=== PATIENT | male | born 1990 | race African-American/Black ===

== ENCOUNTER 2023-10-21 23:07 | Inpatient (IN) | payer MEDICARE, MEDICAID ==
[2023-10-21] MEDS ORDERED: MAG HYDROX/AL HYDROX/SIMETH 355 ML BOTTLE PO PRN (23:09)
[2023-10-21] MEDS ORDERED: LORazepam 2 MG/ML INJ IM PRN (23:12)
[2023-10-21] MEDS ORDERED: traZODone HCL 50 MG TAB PO PRN (23:12)
[2023-10-22] MEDS: HALOPERIDOL LACTATE 5 MG/ML 1 ML VIAL IM PRN (01:10)
[2023-10-22] MEDS: IBUPROFEN 600 MG TAB PO PRN (08:37)
[2023-10-22] MEDS: METOPROLOL TARTRATE 25 MG TAB PO SCH (08:37)
[2023-10-22] MEDS: amLODIPine 10 MG TAB PO SCH (08:38)
[2023-10-22] MEDS: haloperidoL 5 MG TAB PO PRN (08:39)
[2023-10-22] MEDS: NICOTINE 14MG/24HR PATCH TRANSDERM SCH (08:48)
[2023-10-22 09:26] LABS: Basophils % (A) 1 %; Eosinophils # (A) 0.2 k/uL (0-0.7); Eosinophils % (A) 4 %; HCT 39.2 % (39.0-53.0); HGB 13.2 gm/dL (13.0-17.5); Lymphocytes # (A) 1.5 k/uL (1.0-4.8); Lymphocytes % (A) 27 %; MCH 33.8 pg (25.0-35.0); MCHC 33.7 g/dL (31.0-37.0); MCV 100.2 fL (80.0-100.0); Macrocytosis Slight; Mean Platelet Volume 8.7; Monocytes # (A) 0.5 k/uL (0-1.0); Monocytes % (A) 9 %; Neutrophils # (A) 3.2 k/uL (1.3-7.7); Neutrophils % (A) 58 %; RBC 3.91 m/uL (4.30-5.90); RDW 14.7 % (11.5-15.5); WBC 5.5 k/uL (3.8-10.6)
[2023-10-22 09:48] LABS: ALT 18 U/L (4-49); AST 30 U/L (17-59); African American GFR (CKD) 49 (>60 ml/min/1.73 sqM); Albumin 3.5 g/dL (3.5-5.0); Alkaline Phosphatase 70 U/L (38-126); Anion Gap 6 mmol/L; Blood Urea Nitrogen 20 mg/dL (9-20); Calcium 8.9 mg/dL (8.4-10.2); Carbon Dioxide 29 mmol/L (22-30); Chloride 105 mmol/L (98-107); Glucose 156 mg/dL (74-99); Non-African American GFR(CKD) 43 (>60 ml/min/1.73 sqM); Potassium 3.5 mmol/L (3.5-5.1); Sodium 140 mmol/L (137-145); Total Bilirubin 1.1 mg/dL (0.2-1.3)
[2023-10-22 11:11] LABS: Platelet Count 40 k/uL (150-450)
[2023-10-22 11:12] LABS: Poikilocytosis (M) Present; RBC Fragments Present; Spherocytes Present
[2023-10-22] MEDS ORDERED: hydrOXYzine HCL 50 MG/ML 1 ML VIAL IM PRN (11:26)
[2023-10-22] MEDS ORDERED: LORazepam 2 MG/ML INJ IM PRN (11:26)
[2023-10-22] MEDS ORDERED: flUPHENAZine 2.5 MG/ML (MDV) 10 ML VIAL IM PRN (11:37)
--- NOTE | 2023-10-22 11:52 | P.HP ---
Psychiatric H&P - . H&P Date: 10/22/23 History & Physical: Allergies Allergy/AdvReac Type Severity Reaction Status Date / Time No Known Allergies Allergy Verified 10/21/23 23:09 Vital Signs Temp Pulse Resp BP 150/104 10/22/23 10:19 Pulse Ox FiO2 Intake & Output 10/21/23 10/22/23 10/22/23 18:59 06:59 18:59 Weight 84.822 kg Laboratory Last Values WBC 5.5 k/uL (3.8-10.6) 10/22/23 09:10 RBC 3.91 m/uL (4.30-5.90) L 10/22/23 09:10 Hgb 13.2 gm/dL (13.0-17.5) 10/22/23 09:10 Hct 39.2 % (39.0-53.0) 10/22/23 09:10 MCV 100.2 fL (80.0-100.0) H 10/22/23 09:10 MCH 33.8 pg (25.0-35.0) 10/22/23 09:10 MCHC 33.7 g/dL (31.0-37.0) 10/22/23 09:10 RDW 14.7 % (11.5-15.5) 10/22/23 09:10 Plt Count 40 k/uL (150-450) L 10/22/23 09:10 MPV 8.7 10/22/23 09:10 Neutrophils % 58 % 10/22/23 09:10 Lymphocytes % 27 % 10/22/23 09:10 Monocytes % 9 % 10/22/23 09:10 Eosinophils % 4 % 10/22/23 09:10 Basophils % 1 % 10/22/23 09:10 Neutrophils # 3.2 k/uL (1.3-7.7) 10/22/23 09:10 Lymphocytes # 1.5 k/uL (1.0-4.8) 10/22/23 09:10 Monocytes # 0.5 k/uL (0-1.0) 10/22/23 09:10 Eosinophils # 0.2 k/uL (0-0.7) 10/22/23 09:10 Basophils # 0.0 k/uL (0-0.2) 10/22/23 09:10 Manual Slide Review Performed 10/22/23 09:10 Poikilocytosis (manual Present 10/22/23 09:10 Macrocytosis Slight 10/22/23 09:10 Spherocytes Present 10/22/23 09:10 Fragmented RBCs Present 10/22/23 09:10 Sodium 140 mmol/L (137-145) 10/22/23 09:10 Potassium 3.5 mmol/L (3.5-5.1) 10/22/23 09:10 Chloride 105 mmol/L (98-107) 10/22/23 09:10 Carbon Dioxide 29 mmol/L (22-30) 10/22/23 09:10 Anion Gap 6 mmol/L 10/22/23 09:10 BUN 20 mg/dL (9-20) 10/22/23 09:10 Creatinine 1.99 mg/dL (0.66-1.25) H 10/22/23 09:10 Est GFR (CKD-EPI)AfAm 49 (>60 ml/min/1.73 sqM) 10/22/23 09:10 Est GFR (CKD-EPI)NonAf 43 (>60 ml/min/1.73 sqM) 10/22/23 09:10 Glucose 156 mg/dL (74-99) H 10/22/23 09:10 Calcium 8.9 mg/dL (8.4-10.2) 10/22/23 09:10 Total Bilirubin 1.1 mg/dL (0.2-1.3) 10/22/23 09:10 AST 30 U/L (17-59) 10/22/23 09:10 ALT 18 U/L (4-49) 10/22/23 09:10 Alkaline Phosphatase 70 U/L (38-126) 10/22/23 09:10 Total Protein 6.0 g/dL (6.3-8.2) L 10/22/23 09:10 Albumin 3.5 g/dL (3.5-5.0) 10/22/23 09:10 TSH 1.500 mIU/L (0.465-4.680) 10/22/23 09:10 10/22/23 11:28 IDENTIFYING DATA: Patient is a 33-year-old male, -[place], is homeless, single has 1 kid, collect Social Security disability HPI: Patient presented to the hospital as a transfer from [place] outside hospital. Patient apparently has a history of schizophrenia, he is also apparently on a court order for mental health treatment which expires in December 09. According to the petition which was filled out by a mental health therapist it claimed that he has been "noncompliant with court order. Has not taken medication in 3 months. Has not followed up with treatment team. Responding to internal stimuli". Patient needed 2 doses of Haldol earlier this morning as a as needed for agitation, he was uncooperative with the admission process. Patient had very poor insight and judgment when sports writer attempted to speak with him, he got upset when sports writer asked him about the circumstances of him being transferred to the mental health unit and what brought him into the hospital. He believes that the police are just trying to put him in longterm. He claims that he has an apartment in a house. He minimizes his need for medications and to be in the hospital, he was fairly irritable with sports writer, uncooperative during most of the evaluation. Very poor impulse control and poor judgment. Claims his sleep has been on and off appetite has been fair. Patient denies any suicidal or homicidal ideations intent or plan. At this time patient denies any auditory or visual hallucinations. Patient denies any flight of ideas racing thoughts and increased in goal directed behavior. Patient admits to using no recreational drugs however has not provided a urine drug screen PAST PSYCHIATRIC HISTORY: Patient has a history of schizophrenia and noncompliance. He claims that he has been on several and he psychotics in the past and other medications which she cannot list. He states that he has been hospitalized in [place] several times and also [place] recently. Patient denies any psychiatric outpatient follow-up. Patient denies any history of suicide attempts in the past. PMH: as per ER note ALLERGIES: as per EMR CHEMICAL DEPENDENCY HISTORY: as per HPI FAMILY PSYCHIATRIC/SUBSTANCE USE HISTORY: He claims that there is significant mental illness in his family however cannot specify what it is SOCIAL HISTORY: Patient was born and raised in [facility], claims that he completed high school, he is single, he is homeless, has 1 kid, he collect Social Security disability. Claims that he has been arrested several times in the past MENTAL STATUS EXAM: General Appearance: Patient appears to be tall, disheveled appearance, stated age is alert, uncooperative mildly irritable. Patient appears to have poor hygiene and grooming. Behavior: Patient is laying in his bed, sheets covering his face, somewhat agitated and irritable. Uncooperative Speech: Patient's speech is fluent and nonpressured. [place], evasive Mood/Affect: Patient reports their mood is fine", affect is incongruent and constricted. Suicidality/Homicidality: Patient denies having any homicidal ideation intent or plan. Denies any suicidal ideations intent or plan Perceptions: Patient denies any visual hallucinations and denies any auditory hallucinations Though content/process: Poor insight into his condition and need for treatment, denies any delusions. [place] Memory and concentration: AOX3, grossly intact for the purposes of this session. Judgment and insight: Chronically poor STRENGTHS/WEAKNESSES: strength is that patient is resilient. Weakness is that patient has poor judgment and is impulsive and chronic mental illness INTELLECT: Average IMPRESSIONS: Schizophrenia Noncompliance with medication treatment regimen Nicotine dependence PLAN: -Patient is admitted under involuntary status to MHU for stabilization of psychiatric symptoms and safety. Patient has not signed adult voluntary form and medication consent and is placed in patient's chart. Patient is currently on a active court order for mental health treatment which expires on 12/09. -Medications : Start Prolixin p.o. 4 mg twice daily for psychosis/mood stabilization. If patient refuses p.o. Prolixin then please give IM Prolixin as per court order. Trazodone 100 mg nightly as needed for insomnia/mood. -Ativan and Haldol PRN for agitation/aggression -Patient was informed of the risks, benefits and side effects of the medication and patient verbally consented to taking the medications. -Internal Medicine consult to perform medical evaluation and physical. -NRT -nicotine patch -SW on board for discharge planning. Encourage patient to participate in groups to work on coping skills.
[2023-10-22 15:39] LABS: Chol/HDL Ratio 3.16 Ratio; LDL Cholesterol,Calculated 68.5 mg/dL (0.0-131.0)
[2023-10-22] MEDS: ACETAMINOPHEN TAB 325 MG TAB PO PRN (18:04)
[2023-10-22] MEDS: traZODone HCL 100 MG TAB PO PRN (20:58)
[2023-10-22] MEDS: hydroCHLOROthiazide 25 MG TAB PO SCH (21:39)
[2023-10-22] MEDS: hydrALAZINE HCL 25 MG TAB PO STA (21:40)
--- NOTE | 2023-10-23 05:02 | P.PN ---
Progress Note - Text Progress Note Date: 10/23/23 Attempted to see this patient in the MHU on 10/21 at 2200. Informed by the MHU RN that the patient was actively psychotic and aggressive and inappropriate for evaluation at that time. Will attempt to see the patient again today.
--- NOTE | 2023-10-23 12:07 | P.PN ---
Progress Note - Text Progress Note Date: 10/23/23 Interval History: Patient was seen in his room and was directable and agreeable to speak with wr iter at the bedside. He states that he is "all right" today. He states he does not know why he is here, he states he just needs his bones checked out. He claims to have a crushed hip and tailbone for 2 years, from falling off the roof. He states he needs toradol, morphine, dilaudid, or fentanyl for sleep. [employer] explained that those medications are not indicated for sleep. He states that he does not need "mental pills". Patient lacks insight for his need for treatment. Patient states that he only slept 1.5 hours last night, and states his appetite is good. At this time patient denies any suicidal or homicidal ideations, intent or plan. Patient denies any auditory, visual hallucinations and denies any paranoia or delusions. Patient denies any side effects from the medications and has been compliant with meds. MENTAL STATUS EXAM: General Appearance: Patient appears to be tall, disheveled appearance, stated age is alert. Patient appears to have poor hygiene and grooming. Behavior: Patient is laying in his bed, covered up, more cooperative today, drug seeking Speech: Patient's speech is fluent and nonpressured. [place], evasive Mood/Affect: Patient reports their mood is "all right", affect is incongruent and constricted. Suicidality/Homicidality: Patient denies having any homicidal ideation intent or plan. Denies any suicidal ideations intent or plan Perceptions: Patient denies any visual hallucinations and denies any auditory hallucinations Though content/process: Poor insight into his condition and need for treatment, denies any delusions. [place] Memory and concentration: AOX3, grossly intact for the purposes of this session. Judgment and insight: Chronically poor IMPRESSIONS: Schizophrenia Noncompliance with medication treatment regimen Nicotine dependence PLAN: -Patient is admitted under involuntary status to MHU for stabilization of psychiatric symptoms and safety. Patient has not signed adult voluntary form and medication consent and is placed in patient's chart. Patient is currently on a active court order for mental health treatment which expires on 12/09. -Medications : increase Prolixin p.o. 6 mg twice daily for psychosis/mood stabilization. If patient refuses p.o. Prolixin then please give IM Prolixin as per court order. Add Zoloft 50mg qhs for mood/anxiety. change Trazodone 100 mg nightly scheduled for insomnia/mood. -Ativan and Haldol PRN for agitation/aggression -NRT -nicotine patch -SW on board for discharge planning. Encourage patient to participate in groups to work on coping skills. pt is homeless.
[2023-10-23] MEDS: SERTRALINE 50 MG TAB PO SCH (19:57)
[2023-10-23] MEDS: traZODone HCL 100 MG TAB PO SCH (19:58)
[2023-10-23] MEDS: hydrOXYzine pamoate 25 MG CAP PO PRN (19:59)
--- NOTE | 2023-10-24 04:40 | P.CONS ---
History of Present Illness - Reason for Consult Consult date: 10/24/23 - History of Present Illness The patient is a 33-year-old male with a PMH of hypertension, CKD, marijuana abuse who had presented to the emergency room transferred from [facility] for schizophrenia. Patient was seen at the mental health unit. Patient reports that he experienced a right ankle injury 2 years ago and feels that it has not healed appropriately and continues to have chronic right ankle edema. He also reported a tailbone injury several months ago which also is causing chronic pain. He reports recreational marijuana use along with smoking 5 cigarettes/day. He denies alcohol or additional illicit substance use. Denies experiencing chest discomfort, shortness breath or fever, chills, cough, nausea, vomiting, abdominal pain, diarrhea. Review of systems: Pertinent positives and negatives as discussed in HPI, a complete review of systems was performed and all other systems are negative. Physical examination: General: non toxic, no distress, appears at stated age, normal weight Derm: no unusual rashes/lesions, no unusual ecchymoses, warm, dry Head: atraumatic, normocephalic, symmetric Eyes: EOMI, no lid lag, anicteric sclera ENT: Nose and ears atraumatic, no thrush, no pharyngeal erythema Neck: trachea midline, supple Mouth: no lip lesion, mucus membranes moist Cardiovascular: S1S2 reg, no murmur, no edema Lungs: CTA bilateral, no rhonchi, no rales , no accessory muscle use Abdominal: soft, nontender to palpation, no guarding Ext: no gross muscle atrophy, no contractures, mild right lateral ankle edema with minimal tenderness Neuro: No gross focal neuro deficits noted Psych: Alert, oriented, appropriate affect Assessment: Thrombocytopenia, unclear CKD stage IIIa Hypertension R ankle edema with tenderness Plan: Continue with antihypertensive Norvasc 10, hydrochlorothiazide 25, and metoprolol 25 mg Obtain right ankle and coccyx x-rays Monitor CBC BMP Thank you for allowing us to participate in the care of this patient. We will follow peripherally. Do not hesitate to contact us with questions. Someone can be reached from the [facility] hospitalist group at all hours of the day at [phone]. Past Medical History Past Medical History: Hypertension Additional Past Medical History / Comment(s): hx of crushed right ankle and unknown injury to right lower leg. Has mutliple surgical scars lower abdomen, "I have had alot of surgeries". Vague about why History of Any Multi-Drug Resistant Organisms: Unobtainable Additional Past Surgical History / Comment(s): multiple unkown surgeries per patient. Past Anesthesia/Blood Transfusion Reactions: Unable to Obtain Past Psychological History: Bipolar Smoking Status: Current some day smoker Past Alcohol Use History: Heavy Additional Past Alcohol Use History / Comment(s): Occassional to patient is is a 1/2 pint to 1 pint per week. Past Drug Use History: Cocaine, Marijuana - Past Family History Mother Family Medical History: Congestive Heart Failure (CHF) Medications and Allergies Allergies Allergy/AdvReac Type Severity Reaction Status Date / Time No Known Allergies Allergy Verified 10/21/23 23:09 Physical Exam Vitals: Vital Signs Temp Pulse Resp BP 10/23/23 08:27 97.9 F 93 16 145/98 Results CBC & Chem 7: 10/22/23 09:10 10/22/23 09:10
--- NOTE | 2023-10-24 10:05 | P.PN ---
Progress Note - Text Progress Note Date: 10/24/23 Interval History: Patient was seen in his room and was directable and agreeable to speak with wr iter at the bedside. He states that he is "all right" today. He states he slept better last night. He states his mood is improving, and his insight for treatment is improving. and states his appetite is good. At this time patient denies any suicidal or homicidal ideations, intent or plan. Patient denies any auditory, visual hallucinations and denies any paranoia or delusions. Patient denies any side effects from the medications and has been compliant with meds. MENTAL STATUS EXAM: General Appearance: Patient appears to be tall, disheveled appearance, stated age is alert. Patient appears to have poor hygiene and grooming. Behavior: Patient is laying in his bed, covered up, more cooperative today, Speech: Patient's speech is fluent and nonpressured. [place], mildly improving Mood/Affect: Patient reports their mood is "all right", affect is incongruent and constricted. Suicidality/Homicidality: Patient denies having any homicidal ideation intent or plan. Denies any suicidal ideations intent or plan Perceptions: Patient denies any visual hallucinations and denies any auditory hallucinations Though content/process: Poor insight into his condition and need for treatment, denies any delusions. [place], mildly improving Memory and concentration: AOX3, grossly intact for the purposes of this session. Judgment and insight: Chronically poor IMPRESSIONS: Schizophrenia Noncompliance with medication treatment regimen Nicotine dependence PLAN: -Patient is admitted under involuntary status to MHU for stabilization of psychiatric symptoms and safety. Patient has not signed adult voluntary form and medication consent and is placed in patient's chart. Patient is currently on a active court order for mental health treatment which expires on 12/09. -Medications : Prolixin p.o. 6 mg twice daily for psychosis/mood stabilization, taper off PO prolixin once receives JARRETT. If patient refuses p.o. Prolixin then please give IM Prolixin as per court order. Zoloft 50mg qhs for mood/ anxiety.Trazodone 100 mg nightly scheduled for insomnia/mood. on 10/24, patient will receive JARRETT Prolixin D 37.5mg IM q 21 days on 10/24, next dose due 11/14 -Ativan and Haldol PRN for agitation/aggression -NRT - nicotine patch -SW on board for discharge planning. Encourage patient to participate in groups to work on coping skills. pt is homeless. discharge Sunday, after patient is transitioned onto JARRETT, will be going back to [place], refer to halfway.
[2023-10-24] MEDS: MAGNESIUM HYDROXIDE 2,400 MG/30 ML CUP PO PRN (11:43)
[2023-10-24] MEDS: LORazepam 1 MG TAB PO PRN (11:43)
--- NOTE | 2023-10-24 13:41 | XR ---
EXAMINATION TYPE: XR sacrum coccyx 3 views, XR ankle complete 3 views RT DATE OF EXAM: 10/24/2023 COMPARISON: NONE HISTORY: 33-year-old male right ankle pain and swelling FINDINGS: Sacrum and coccyx: SI joints appear symmetric and intact. Fluid delineation to the arcuate lines of the sacrum. No subar ticular erosions are seen. Some scattered vascular calcifications noted. There is trace 3 mm of poste rior step off at the coccyx. No angulation deformity. Ankle: Ankle mortise is congruent with preservation of the distal tibiofibular overlap. Talar dome is intact . Possible underlying pes planus. Smooth delineation to the Achilles tendon. No acute fracture, sublu xation, dislocation. IMPRESSION: 1. Sacrum and coccyx: Trace 3 mm posterior step-off at the coccyx on the lateral view. Findings sugge st an age indeterminate minimally offset tailbone fracture. Clinically correlate. 2. Right ankle: No acute osseous abnormality seen. There may be underlying pes planus.
[2023-10-25] MEDS: fluPHENAZine DECANOATE 25 MG/ML 5ML MDV IM SCH (09:22)
--- NOTE | 2023-10-25 13:21 | P.PN ---
Progress Note - Text Progress Note Date: 10/25/23 Interval History: Patient was seen via HIPAA-compliant Zoom (pt consented). He states that he is "all right" today. He states he slept well last night. He states his mood is improving, and his insight for treatment is improving. He states his appetite is good. At this time patient denies any suicidal or homicidal ideations, intent or plan. Patient denies any auditory, visual hallucinations and denies any paranoia or delusions. Patient denies any side effects from the medications and has been compliant with meds. He received JARRETT today and denies concerns with it. Discussed patient's thrombocytopenia. He was encouraged to f/u with PCP outpatient and that medical team is ordering further labs at this time. Patient expressed understanding and agreed to do so. MENTAL STATUS EXAM: General Appearance: Patient appears to be tall, disheveled appearance, stated age is alert. Patient appears to have poor hygiene and grooming. Behavior: Patient is laying in his bed, covered up, more cooperative today, Speech: Patient's speech is fluent and nonpressured. [place], mildly improving Mood/Affect: Patient reports their mood is "all right", affect is incongruent and constricted. Suicidality/Homicidality: Patient denies having any homicidal ideation intent or plan. Denies any suicidal ideations intent or plan Perceptions: Patient denies any visual hallucinations and denies any auditory hallucinations Though content/process: Poor insight into his condition and need for treatment, denies any delusions. [place], mildly improving Memory and concentration: AOX3, grossly intact for the purposes of this session. Judgment and insight: Chronically poor IMPRESSIONS: Schizophrenia Noncompliance with medication treatment regimen Nicotine dependence PLAN: -Patient is admitted under involuntary status to MHU for stabilization of psychiatric symptoms and safety. Patient has not signed adult voluntary form and medication consent and is placed in patient's chart. Patient is currently on a active court order for mental health treatment which expires on 12/09. -Medications : Reduce Prolixin p.o. to 6 mg daily for psychosis/mood stabilization with plan to dc tomorrow. If patient refuses p.o. Prolixin then please give IM Prolixin as per court order. Zoloft 50mg qhs for mood/anxiety. Trazodone 100 mg nightly scheduled for insomnia/mood. on 10/24, received JARRETT Prolixin D 37.5mg IM q 21 days on 10/24, next dose due 11/14 -Ativan and Haldol PRN for agitation/aggression -NRT - nicotine patch -SW on board for discharge planning. Encourage patient to participate in groups to work on coping skills. pt is homeless. discharge Sunday, after patient is transitioned onto JARRETT, will be going back to [place], refer to fpc. -Pt being given resources for PCP for f/u thrombocytopenia (contributing factors of CKD and alcohol use; IM on board and monitoring). SW asked to help with appt scheduling.
[2023-10-25 15:57] LABS: HCT 43.1 % (39.0-53.0); MCH 33.5 pg (25.0-35.0); MCHC 32.6 g/dL (31.0-37.0); MCV 102.7 fL (80.0-100.0); Macrocytosis Slight; Mean Platelet Volume 9.4; RDW 14.2 % (11.5-15.5)
[2023-10-25 16:15] LABS: Platelet Count 158 k/uL (150-450)
[2023-10-26 05:43] VITALS: BP 127/90; PULSE 77; RESP 18; TEMP 97.7
--- NOTE | 2023-10-26 17:17 | P.DS ---
Providers Date of admission: 10/22/23 01:42 Expected date of discharge: 10/26/23 Attending physician: Clint Minor MD Consults: 10/21/23 23:09 Consult Physician Routine Consulting Provider: Sunil Michaels Consult Reason/Comments: History and Physical, Hx of hypertension. Do you want consulting provider notified?: Yes Primary care physician: Physician Nonstaff Hospital Course: Admission HPI: Admission note was completed by Dr. Minor, "IDENTIFYING DATA: Patient is a 33-year-old male, -Mac[place], is homeless, single has 1 kid, collect Social Security disability HPI: Patient presented to the hospital as a transfer from [place] outside hospital. Patient apparently has a history of schizophrenia, he is also apparently on a court order for mental health treatment which expires in December 09. According to the petition which was filled out by a mental health therapist it claimed that he has been "noncompliant with court order. Has not taken medication in 3 months. Has not followed up with treatment team. Responding to internal stimuli". Patient needed 2 doses of Haldol earlier this morning as a as needed for agitation, he was uncooperative with the admission process. Patient had very poor insight and judgment when chart writer attempted to speak with him, he got upset when chart writer asked him about the circumstances of him being tr ansferred to the mental health unit and what brought him into the hospital. He believes that the police are just trying to put him in fpc. He claims that he has an apartment in a house. He minimizes his need for medications and to be in the hospital, he was fairly irritable with chart writer, uncooperative during most of the evaluation. Very poor impulse control and poor judgment. Claims his sleep has been on and off appetite has been fair. Patient denies any suicidal or homicidal ideations intent or plan. At this time patient denies any auditory or visual hallucinations. Patient denies any flight of ideas racing thoughts and increased in goal directed behavior. Patient admits to using no recreational drugs however has not provided a urine drug screen PAST PSYCHIATRIC HISTORY: Patient has a history of schizophrenia and noncompliance. He claims that he has been on several and he psychotics in the past and other medications which she cannot list. He states that he has been hospitalized in [place] several times and also [place] recently. Patient denies any psychiatric outpatient follow-up. Patient denies any history of suicide attempts in the past. PMH: as per ER note ALLERGIES: as per EMR CHEMICAL DEPENDENCY HISTORY: as per HPI FAMILY PSYCHIATRIC/SUBSTANCE USE HISTORY: He claims that there is significant mental illness in his family however cannot specify what it is SOCIAL HISTORY: Patient was born and raised in [facility] [place], claims that he completed high school, he is single, he is homeless, has 1 kid, he collect Social Security disability. Claims that he has been arrested several times in the past MENTAL STATUS EXAM: General Appearance: Patient appears to be tall, disheveled appearance, stated age is alert, uncooperative mildly irritable. Patient appears to have poor hygiene and grooming. Behavior: Patient is laying in his bed, sheets covering his face, somewhat agitated and irritable. Uncooperative Speech: Patient's speech is fluent and nonpressured. [place], evasive Mood/Affect: Patient reports their mood is fine", affect is incongruent and constricted. Suicidality/Homicidality: Patient denies having any homicidal ideation intent or plan. Denies any suicidal ideations intent or plan Perceptions: Patient denies any visual hallucinations and denies any auditory hallucinations Though content/process: Poor insight into his condition and need for treatment, denies any delusions. [place] Memory and concentration: AOX3, grossly intact for the purposes of this session. Judgment and insight: Chronically poor STRENGTHS/WEAKNESSES: strength is that patient is resilient. Weakness is that patient has poor judgment and is impulsive and chronic mental illness INTELLECT: Average IMPRESSIONS: Schizophrenia Noncompliance with medication treatment regimen Nicotine dependence PLAN: -Patient is admitted under involuntary status to MHU for stabilization of psychiatric symptoms and safety. Patient has not signed adult voluntary form and medication consent and is placed in patient's chart. Patient is currently on a active court order for mental health treatment which expires on 12/09. -Medications : Start Prolixin p.o. 4 mg twice daily for psychosis/mood stabilization. If patient refuses p.o. Prolixin then please give IM Prolixin as per court order. Trazodone 100 mg nightly as needed for insomnia/mood. -Ativan and Haldol PRN for agitation/aggression -Patient was informed of the risks, benefits and side effects of the medication and patient verbally consented to taking the medications. -Internal Medicine consult to perform medical evaluation and physical. -NRT -nicotine patch -SW on board for discharge planning. Encourage patient to participate in groups to work on coping skills." Hospital course: Upon admission to the unit patient was on a court order which expires 12/10/23. Patient was noncompliant with medications and required PRN Haldol for severe agitation. He was started on oral Prolixin with IM Prolixin as needed for refusal of oral Prolixin. Patient mostly kept to himself in his room except for meals. Patient was also seen by medical team for history and physical exam. Th roughout the course of the hospitalization patient gradually improved with regards to psychosis and agitation, and returned back to their baseline level of functioning. He was transitioned to Prolixin decanoate 37.5 mg Q21 days on 10/25/23 with next dose due on 11/15/23 as an outpatient. On the day of discharge patient denied any suicidal or homicidal ideation, intent or plan, and denied any auditory or visual hallucinations. Patient endorsed wanting to live for his health and family. The patient denied any access to guns or weapons. Patient denied any paranoia and did not endorse any delusions. Patient was also counseled on the medications and need for regular compliance and was encouraged to follow-up with their outpatient appointment for mental health and also for primary care. Prior to discharge a family meeting will be arranged by social contact worker to answer any questions and ensure safety upon discharge. Patient will be provided with a taxi ride to his mother's house on discharge. Mental status exam: General Appearance: Patient appears to be stated age, long hair in dreads, improved hygiene and grooming Behavior: Patient is calmly laying in bed, sits up in bed for assessment. Tends to keep to himself in his room. Speech: Patient's speech is fluent and non-pressured. Mood/Affect: Patient reports their mood is "good", affect is euthymic/blunted. Suicidality/Homicidality: Patient denies having any suicidal or homicidal ideation intent or plan. Perceptions: Patient denies any auditory or visual hallucinations. Though content/process: There is no evidence of any delusional thought content and thought process is linear and goal-directed. Memory and concentration: AOX3, grossly intact for the purposes of this session. Judgment and insight: chronically poor, hence court order for medication/treatment compliance Impression: Schizophrenia Noncompliance with medication treatment regimen Nicotine dependence Plan: -Continue with discharge today as patient has improved and stabilized psychiatrically and is not currently an imminent threat to himself and/or others. -Continue medications: Prolixin decanoate 37.5 mg IM [id number] given on 10/25/23. Next dose due 11/15/23. Zoloft 50 mg daily for depression/anxiety. Trazodone 100 mg QHS for sleep. Hydroxyzine 50 mg BID PRN for anxiety. -Patient was counseled on the need for medication compliance and appropriate follow-up at mental health and also primary care for medical issues. Patient verbalized understanding and agreed. -Social work to arrange for and conduct family meeting to ensure safety upon discharge and answer any questions/concerns. Social work also to arrange for patients follow up appointments for psychiatric care along with follow up with primary care provider. -Patient counseled on abstaining from recreational drugs and marijuana and alcohol. Was informed/educated on the adverse effects on their physical and mental health. -Patient was instructed to return to the hospital or seek immediate medical care if their psychiatric or medical symptoms do worsen or reoccur. Vital Signs (72 hours) 10/24/23 10/24/23 10/25/23 08:44 11:45 09:00 Temperature 97.6 F Pulse Rate [ 102 H 102 H Left] Respiratory 16 Rate Blood Pressure 138/89 130/89 131/86 [Left Arm] O2 Sat by Pulse 98 Oximetry 10/26/23 05:42 Temperature 97.7 F Pulse Rate [ 77 Left] Respiratory 18 Rate Blood Pressure 127/90 [Left Arm] O2 Sat by Pulse 97 Oximetry Laboratory Results WBC 6.0 k/uL (3.8-10.6) 10/25/23 15: RBC 4.20 m/uL (4.30-5.90) L 10/25/23 15:29 Hgb 14.0 gm/dL (13.0-17.5) 10/25/23 15:29 Hct 43.1 % (39.0-53.0) 10/25/23 15:29 MCV 102.7 fL (80.0-100.0) H 10/25/23 15: MCH 33.5 pg (25.0-35.0) 10/25/23 15:29 MCHC 32.6 g/dL (31.0-37.0) 10/25/23 15:29 RDW 14.2 % (11.5-15.5) 10/25/23 15:29 Plt Count 158 k/uL (150-450) D 10/25/23 15:29 MPV 9.4 10/25/23 15:29 Neutrophils % 58 % 10/22/23 09:10 Lymphocytes % 27 % 10/22/23 09:10 Monocytes % 9 % 10/22/23 09:10 Eosinophils % 4 % 10/22/23 09:10 Basophils % 1 % 10/22/23 09:10 Neutrophils # 3.2 k/uL (1.3-7.7) 10/22/23 09:10 Lymphocytes # 1.5 k/uL (1.0-4.8) 10/22/23 09:10 Monocytes # 0.5 k/uL (0-1.0) 10/22/23 09:10 Eosinophils # 0.2 k/uL (0-0.7) 10/22/23 09:10 Basophils # 0.0 k/uL (0-0.2) 10/22/23 09:10 Manual Slide Review Performed 10/22/23 09:10 Poikilocytosis (manual Present 10/22/23 09:10 Macrocytosis Slight 10/25/23 15:29 Spherocytes Present 10/22/23 09:10 Fragmented RBCs Present 10/22/23 09:10 Sodium 140 mmol/L (137-145) 10/22/23 09:10 Potassium 3.5 mmol/L (3.5-5.1) 10/22/23 09:10 Chloride 105 mmol/L (98-107) 10/22/23 09:10 Carbon Dioxide 29 mmol/L (22-30) 10/22/23 09:10 Anion Gap 6 mmol/L 10/22/23 09:10 BUN 20 mg/dL (9-20) 10/22/23 09:10 Creatinine 1.99 mg/dL (0.66-1.25) H 10/22/23 09:10 Est GFR (CKD-EPI)AfAm 49 (>60 ml/min/1.73 sqM) 10/22/23 09:10 Est GFR (CKD-EPI)NonAf 43 (>60 ml/min/1.73 sqM) 10/22/23 09:10 Glucose 156 mg/dL (74-99) H 10/22/23 09:[address] Glu mg/dL 100 mg/dL 10/22/23 09:10 Hemoglobin A1c 5.1 % (<=6.0) 10/22/23 09:10 Calcium 8.9 mg/dL (8.4-10.2) 10/22/23 09:10 Total Bilirubin 1.1 mg/dL (0.2-1.3) 10/22/23 09:10 AST 30 U/L (17-59) 10/22/23 09:10 ALT 18 U/L (4-49) 10/22/23 09:10 Alkaline Phosphatase 70 U/L (38-126) 10/22/23 09:10 Total Protein 6.0 g/dL (6.3-8.2) L 10/22/23 09:10 Albumin 3.5 g/dL (3.5-5.0) 10/22/23 09:10 Triglycerides 126.00 mg/dL (0.00-149.00) 10/22/23 09:10 Cholesterol 137.00 mg/dL (0.00-200.00) 10/22/23 09:10 LDL Cholesterol, Calc 68.5 mg/dL (0.0-131.0) 10/22/23 09:10 VLDL Cholesterol, Calc 25.20 mg/dL (5.00-40.00) 10/22/23 09:10 HDL Cholesterol 43.30 mg/dL (40.00-60.00) 10/22/23 09:10 Cholesterol/HDL Ratio 3.16 Ratio 10/22/23 09:10 TSH 1.500 mIU/L (0.465-4.680) 10/22/23 09:10 Patient Condition at Discharge: Stable Plan - Discharge Summary Discharge Rx Participant: No New Discharge Prescriptions: New fluPHENAZine decanoate [Prolixin Decanoate] 37.5 mg IM Q21D 21 Days #1 ml Sertraline [Zoloft] 50 mg PO HS 30 Days #30 tab traZODone HCL [Desyrel] 100 mg PO HS 30 Days #30 tab hydroCHLOROthiazide [Hydrodiuril] 25 mg PO DAILY 30 Days #30 tab Metoprolol Tartrate [Lopressor] 25 mg PO DAILY 30 Days #30 tab amLODIPine [Norvasc] 10 mg PO DAILY 30 Days #30 tab hydrOXYzine pamoate [Vistaril] 50 mg PO BID PRN 30 Days #60 cap PRN Reason: Anxiety Discharge Medication List Metoprolol Tartrate [Lopressor] 25 mg PO DAILY 30 Days #30 tab 10/26/23 [Rx] Sertraline [Zoloft] 50 mg PO HS 30 Days #30 tab 10/26/23 [Rx] amLODIPine [Norvasc] 10 mg PO DAILY 30 Days #30 tab 10/26/23 [Rx] fluPHENAZine decanoate [Prolixin Decanoate] 37.5 mg IM Q21D 21 Days #1 ml 10/26/23 [Rx] hydrOXYzine pamoate [Vistaril] 50 mg PO BID PRN 30 Days #60 cap 10/26/23 [Rx] hydroCHLOROthiazide [Hydrodiuril] 25 mg PO DAILY 30 Days #30 tab 10/26/23 [Rx] traZODone HCL [Desyrel] 100 mg PO HS 30 Days #30 tab 10/26/23 [Rx] Follow up Appointment(s)/Referral(s): [facility] [Other] - 1 Week [facility] [Other] - 11/05/23 8:40 am [facility] [Other] - 10/29/23 8:45 am (10/29/2023 @ 08:45 New Client appt. ) Patient Instructions/Handouts: Schizophrenia (DC) Activity/Diet/Wound Care/Special Instructions: Avoid the use of street drugs and alcohol. Take all medications as prescribed. When you need refills of your medications,contact your outpatient medical provider or psychiatrist. Go to you scheduled outptient appointments for aftercare treatment. If symptoms return or become worse, call the crisis line [phone] or the [facility] Crisis Unit at [phone] or go to nearest Emergency room. National Suicide and Crisis Lifeline text 988. Discharge Disposition: HOME SELF-CARE
== END 2023-10-26 14:18 | disposition home or self-care (01) | DRG 885 ==
LOC: 3MHU 10-22 01:42
PROVIDERS: ADMIT Psychiatry & Neurology Psychiatry; ATTEND Psychiatry & Neurology Psychiatry
DX: F20.9 Schizophrenia, unspecified (principal); R45.851 Suicidal ideations; D69.6 Thrombocytopenia, unspecified; D75.89 Other specified diseases of blood and blood-forming organs; F17.210 Nicotine dependence, cigarettes, uncomplicated; Z59.00 Homelessness unspecified; F32.A Depression, unspecified; F41.9 Anxiety disorder, unspecified; G89.29 Other chronic pain; I12.9 Hypertensive chronic kidney disease with stage 1 through stage 4 chronic kidney disease, or unspecified chronic kidney disease; N18.31 Chronic kidney disease, stage 3a; Z79.899 Other long term (current) drug therapy; Z82.49 Family history of ischemic heart disease and other diseases of the circulatory system; Z91.148 Patient's other noncompliance with medication regimen for other reason; Z91.199 Patient's noncompliance with other medical treatment and regimen due to unspecified reason